=== PATIENT | male | born 1990 | race Caucasian/White ===

== ENCOUNTER 2021-01-14 16:12 | Emergency (ER) | payer OTHER ==
[2021-01-14 17:44] LABS: HEMOGLOBIN 15.7 gm/dl (14.0-17.5); RED BLOOD COUNT 5.09 M/UL (4.20-5.50); WHITE BLOOD COUNT 9.4 K/UL (4.5-11.0)
[2021-01-14 17:59] LABS: BUN/CREATININE RATIO 17 (0-10)
[2021-01-14] MEDS ORDERED: ERYTHROMYCIN O3.5 GM OU (20:32)
[2021-01-14] MEDS ORDERED: ZOFRAN4 MG PO (20:32)
[2021-01-16 07:11] LABS: HIV SCREEN 4TH GENERATION WRFX Non Reactive (Non Reactive)
[2021-01-16 09:15] LABS: HBSAG SCREEN Negative (Negative); HEP A AB, IGM Negative (Negative); HEP B CORE AB, IGM Negative (Negative); HEP C VIRUS AB <0.1 (0.0-0.9)
[2021-01-16 22:06] LABS: CHLAMYDIA TRACHOMATIS, NAA Negative (Negative); NEISSERIA GONORRHOEAE, NAA Negative (Negative)
[2021-01-17 00:07] LABS: HIV-1 RNA BY PCR <20 (.)
[2021-01-17 10:14] LABS: RPR Reactive (Non Reactive); TREPONEMA PALLIDUM ANTIBODIES Reactive (Non Reactive)
== END 2021-01-14 21:40 | disposition home or self-care (01) ==
LOC: ER1 16:12
PROVIDERS: Emergency Medicine; Physician Assistant Medical
DX: N50.89 Other specified disorders of the male genital organs (principal); H10.9 Unspecified conjunctivitis; F17.210 Nicotine dependence, cigarettes, uncomplicated
CPT/HCPCS: 80053; 80074; 81001; 85025; 85610; 86592; 86696; 87040; 87389; 87536; 96372; 99283; J0561; J0696